=== PATIENT | male | born 1955 | race African-American/Black ===

== ENCOUNTER 2017-04-10 17:20 | Emergency (ER) | payer MEDICAID ==
[~2017-04-10] VITALS: Ht 188 cm; Wt 114.8 kg
[2017-04-10 18:16] LABS: Basophils # (auto) 0.1 uL; Basophils % (auto) 2.4 % (0.0-2.0); Eosinophils # (auto) 0.1 uL; Eosinophils % (auto) 0.9 % (0.0-7.0); Hematocrit 42.3 % (41.0-53.0); Hemoglobin 14.1 g/dL (13.5-17.5); Lymphocytes # (auto) 2.2 uL; Lymphocytes % (auto) 37.5 % (10.0-50.0); Mean Corpuscular Hemoglobin 27.1 pg (28.0-32.0); Mean Corpuscular Hgb Conc. 33.4 g/dL (32.0-36.0); Mean Corpuscular Volume 81.1 fL (80.0-100.0); Mean Platelet Volume 9.4 fL (7.4-10.4); Monocytes # (auto) 0.7 uL; Neutrophils # (auto) 2.8 uL; Neutrophils % (auto) 47.2 % (37.0-80.0); Platelet Count (auto) 208 10^3/uL (140-450); Red Cell Distribution Width 14.7 % (11.6-16.0)
[2017-04-10 18:31] LABS: Albumin 3.4 g/dL (3.4-5.0); BUN/Creatinine Ratio 11.4; Calcium 8.8 mg/dL (8.5-10.1); Magnesium 2.4 mg/dL (1.6-2.6); Potassium 3.2 mmol/L (3.5-5.1)
[2017-04-10 18:41] LABS: Total Protein 7.8 g/dL (6.4-8.2)
[2017-04-11] MEDS ORDERED: POTASSIUM CHL 20 Meq TABLET PO ONE (03:45)
[2017-04-11 04:01] VITALS: BP 128/84
== END 2017-04-11 04:03 | disposition home or self-care (01) ==
LOC: ER 17:29
DX: E87.6 Hypokalemia (principal); K21.9 Gastro-esophageal reflux disease without esophagitis; K82.8 Other specified diseases of gallbladder; I12.9 Hypertensive chronic kidney disease with stage 1 through stage 4 chronic kidney disease, or unspecified chronic kidney disease; E11.22 Type 2 diabetes mellitus with diabetic chronic kidney disease; N18.9 Chronic kidney disease, unspecified; F12.10 Cannabis abuse, uncomplicated
CPT/HCPCS: 36415; 76705; 80053; 83690; 83735; 85025

== ENCOUNTER 2017-04-16 23:35 | Emergency (ER) | payer MEDICAID ==
[~2017-04-16] VITALS: Ht 188 cm; Wt 110.7 kg
[2017-04-17 00:15] VITALS: BP 113/75
== END 2017-04-17 02:44 | disposition left against medical advice (07) ==
LOC: ER 23:35
DX: R04.0 Epistaxis (principal); Z53.21 Procedure and treatment not carried out due to patient leaving prior to being seen by health care provider

== ENCOUNTER 2017-05-07 22:00 | Emergency (ER) | payer MEDICAID ==
[~2017-05-07] VITALS: Ht 190.5 cm; Wt 108.9 kg
[2017-05-08] MEDS ORDERED: HYDROcodone-ACET 10/325MG TAB PO ONE (03:45)
[2017-05-08 05:15] VITALS: BP 128/80
== END 2017-05-08 05:43 | disposition home or self-care (01) ==
LOC: EDBD 22:00 → ER 22:19
DX: S16.1XXA Strain of muscle, fascia and tendon at neck level, initial encounter (principal); S96.912A Strain of unspecified muscle and tendon at ankle and foot level, left foot, initial encounter; S00.93XA Contusion of unspecified part of head, initial encounter; S80.02XA Contusion of left knee, initial encounter; E11.22 Type 2 diabetes mellitus with diabetic chronic kidney disease; I12.9 Hypertensive chronic kidney disease with stage 1 through stage 4 chronic kidney disease, or unspecified chronic kidney disease; N18.9 Chronic kidney disease, unspecified; F12.10 Cannabis abuse, uncomplicated; Y08.89XA Assault by other specified means, initial encounter; Y93.89 Activity, other specified; Y99.8 Other external cause status; Y92.89 Other specified places as the place of occurrence of the external cause
CPT/HCPCS: 70450; 70486; 72125; 73070; 73130; 73560

== ENCOUNTER 2024-08-19 13:36 | Emergency (ER) | payer OTHER, MEDICAID ==
[~2024-08-19] VITALS: Ht 188 cm; Wt 100.9 kg
[2024-08-19] MEDS: HYDROcodone-ACET 10/325MG TAB PO ONE (15:36)
[2024-08-19] MEDS: cefTRIAXone SOD 1,000 MG VL IM ONE (15:37)
[2024-08-19 16:00] VITALS: BP 124/85; PULSE 67; RESP 18; TEMP 98.6; O2SAT 98
[2024-08-19] MEDS ORDERED: CLIN1CAP70 PO (16:01)
[2024-08-19] MEDS ORDERED: IBUP-1456 PO (16:01)
[2024-08-19] MEDS ORDERED: TRAM-626 PO (16:11)
== END 2024-08-19 16:14 | disposition home or self-care (01) ==
LOC: ER 13:36
DX: K04.7 Periapical abscess without sinus (principal); I12.9 Hypertensive chronic kidney disease with stage 1 through stage 4 chronic kidney disease, or unspecified chronic kidney disease; E11.22 Type 2 diabetes mellitus with diabetic chronic kidney disease; N18.9 Chronic kidney disease, unspecified; F15.90 Other stimulant use, unspecified, uncomplicated; Z79.899 Other long term (current) drug therapy; Z79.1 Long term (current) use of non-steroidal anti-inflammatories (NSAID)
CPT/HCPCS: 96372; 99283; J0696

== ENCOUNTER → 2024-12-05 | Outpatient (CLI) | payer OTHER, MEDICAID ==
[~2024-12-05] VITALS: Ht 188 cm; Wt 104.3 kg
[~2024-12-05] MED LIST: CLIN1CAP70 PO; TRAM-626 PO
[2024-12-05] MEDS: REGADENOSON 0.4 MG/5 ML SYRG IV ONE ×2 (12:54)
--- NOTE | 2024-12-05 14:23 | DVHSR ---
APPROVED REPORT Exam: Nuclear Stress Test BMI: 0 Stress Test Details HR Max Heart Rate (APMHR): 152 bpm Target HR (85% APMHR): 129 bpm BP ECG Stress ECG Conclusion Review of the myocardial perfusion images during stress demonstrated a moderate size area of mild int ensity reduced radiotracer uptake in the base of the inferior wall. This appears to be more intense during the resting images. Otherwise, there is homogeneous radiotracer uptake throughout the rest of the left ventricular myocardium. Left ventricular volumes are increased. Ejection fraction is mild ly decreased and is estimated at 45%. No gated images are available to assess for wall motion. Impression: 1. Fixed defect in the inferior wall which could be secondary to attenuation artifact versus prior in farction. 2. No evidence of ischemia. 3. Mildly decreased left ventricular systolic function with ejection fraction 45%. NM EXAM: Myocardial Perfusion REST/STRESS Imaging Protocol: Rest Tc-99m/Stress Tc-99m 1 day Resting Data Rest SPECT myocardial perfusion imaging was performed in supine position 60 minutes following the int ravenous injection of 11.5 mCi of Tc-99m Sestamibi. Time of rest injection: 1127 Time of rest imagin Administration Route: IV Administration Site: Left Hand Pharmacologic Stress Pharmacologic stress test was performed by injecting Regadenoson 0.4 mg IV push followed by the intra venous injection of 32 mCi of Tc-99m Sestamibi. Time of stress injection: 1255 Time of stress imagin Administration Route: IV Administration Site: Left Hand Gated Stress SPECT was performed 60 minutes after stress injection. The images were gated to evaluate regional wall motion and calculate left ventricular ejection fracti on. Stress only was performed in the Supine position. Nuclear Conclusion ECG Findings: equivocal Clinical Findings: negative for ischemia Nuclear Findings: negative for ischemia Exercise Capacity: not assessed Left Ventricular Function: abnormal Risk Study: moderate Review of the myocardial perfusion images during stress demonstrated a moderate size area of mild int ensity reduced radiotracer uptake in the base of the inferior wall. This appears to be more intense during the resting images. Otherwise, there is homogeneous radiotracer uptake throughout the rest of the left ventricular myocardium. Left ventricular volumes are increased. Ejection fraction is mild ly decreased and is estimated at 45%. No gated images are available to assess for wall motion. Impression: 1. Fixed defect in the inferior wall which could be secondary to attenuation artifact versus prior in farction. 2. No evidence of ischemia. 3. Mildly decreased left ventricular systolic function with ejection fraction 45%.
== END | disposition home or self-care (01) ==
LOC: XYW 10:47
PROVIDERS: ATTEND Internal Medicine
DX: Z01.810 Encounter for preprocedural cardiovascular examination (principal); I48.91 Unspecified atrial fibrillation; I11.0 Hypertensive heart disease with heart failure; I50.22 Chronic systolic (congestive) heart failure; M54.50 Low back pain, unspecified; E11.65 Type 2 diabetes mellitus with hyperglycemia; E78.5 Hyperlipidemia, unspecified; G89.29 Other chronic pain
CPT/HCPCS: 78452; 93017; A9500; J2785

== ENCOUNTER 2025-03-29 05:23 | Emergency (ER) | payer OTHER, MEDICAID ==
[~2025-03-29] VITALS: Ht 188 cm; Wt 108.5 kg
[2025-03-29 07:23] VITALS: BP 148/90; PULSE 65; RESP 13; TEMP 97.7; O2SAT 100
--- NOTE | 2025-03-29 07:29 | DVH ---
EXAM: XR Left Foot Complete, 3 or More Views CLINICAL INDICATION: r/o fracture TECHNIQUE: Frontal, lateral and oblique views of the left foot. COMPARISON: None FINDINGS: BONES/JOINTS: See below. SOFT TISSUES: Soft tissue swelling without acute fracture. No radiopaque foreign body. OTHER FINDINGS: . IMPRESSION: 1. Soft tissue swelling without acute fracture. 2. If symptoms persist, further evaluation with CT is recommended.
[2025-03-29] MEDS: KETOROLAC TROMETH 30 MG/ML 1ML VIAL IM ONE (07:54)
[2025-03-29] MEDS ORDERED: IBUP-1455 PO (07:59)
--- NOTE | 2025-03-29 08:00 | ED.PDOC ---
Musculoskeletal HPI Comments This is a pleasant 69-year-old male with a history of diabetes, hypertension, and gout who presents with a chief complaint of atraumatic left foot pain. Symptoms started four days ago. Possible cause: Patient remembers sitting on his foot for a prolonged period of time. Pain has been persistent since. Worsens with flexion-extension of the foot is able to get adequate relief with epud-rjl-euakxwn ibuprofen. Able to ambulate without assistive devices Chief Complaint: Lower Extremity Time Seen by MD: 06:30 Primary Care Provider: UNKNOWN Reviewed Notes: Nurses Notes, Medications, Allergies Allergies: Coded Allergies: NO KNOWN ALLERGIES (Unverified , 11/02/16) Home Meds Active Scripts Tramadol HCl (Tramadol HCl) 50 Mg Tab, 50 MG PO TID, #20 TAB Prov:PUSHPA FARNSWORTH 08/19/24 Clindamycin Hcl (Clindamycin Hcl) 300 Mg Cap, 300 MG PO QID, #40 CAP Prov:PUSHPA FARNSWORTH 08/19/24 Information Source: Patient Mode of Arrival: Ambulatory Past Medical History PAST MEDICAL HISTORY: CKF, DM, HTN Surgical History: Denies all surgeries Family History Family History: Unobtainable Social History Smoker: Non-Smoker Alcohol: Denies ETOH Use Drugs: Marijuana Lives In: Home All Other Systems: Reviewed and Negative (Per HPI) Physical Exam General Appearance: No Apparent Distress, Normal HEENT: Normal ENT Inspection, Pharynx Normal, TMs Normal Neck: Full Range of Motion, Non-Tender, Normal, Normal Inspection Respiratory: Chest Non-Tender, Lungs Clear, No Accessory Muscle Use, No Respiratory Distress, Normal Breath Sounds Cardiovascular: No Edema, No JVD, No Murmur, No Gallop, Normal Peripheral Pulses, Regular Rate/Rhythm Breast Exam: Deferred Gastrointestinal: No Organomegaly, Non Tender, No Pulsatile Mass, Normal Bowel Sounds, Soft Genitalia: Deferred Pelvic: Deferred Rectal: Deferred Extremities: No calf tenderness, Normal capillary refill, Normal inspection, Normal range of motion, Non-tender, No pedal edema Musculoskeletal : Apperance: Normal Neurologic: Alert, speech and hearing clinic director II-XII nml as Tested, No Motor Deficits, Normal Affect, Normal Mood, No Sensory Deficits Cerebellar Function: Normal Reflexes: Normal Skin: Dry, Normal Color, Warm Lymphatic: No Adenopathy Was a procedure done? Was a procedure done?: No Images 1 - Localized TTP. Dorsiflexion plantar flexion intact. Dorsalis pedis pulses 2+. Cap refill less than 2 seconds. Neurovascular sensation intact Differential Diagnosis EXT Differential Diagnosis: Sprain X-Ray, Labs, Meds, VS Vital Signs Date Time Temp Pulse Resp B/P (MAP) Pulse Ox O2 Delivery O2 Flow Rate FiO2 03/29/25 07:23 97.7 65 13 148/90 (109) 100 97.7 03/29/25 07:23 65 13 100 Room Air 03/29/25 05:30 97.7 65 13 148/90 (109) 100 97.7 X-Ray, Labs, Meds, VS Comment Findings: No fracture or dislocation My wet read reveals no apparent acute bony abnormality, no FB, minimal to no soft tissue swelling and appropriate alignment. Presentation most consistent with foot tendonitis Patient does not currently demonstrate complications of sprain such as compartment syndrome, arterial or nerve injury. Differentials considered but not limited to: sprain, fracture, achilles tendon rupture The joint itself is non-irritable with ROM and there is no overlying redness and warmth to suggest injection. The Achilles and dorsiflexion tendon are non-tender and extension is intact. Disposition: Discharge. Supportive bracing provided. RICE. Strict return precautions and instructions to follow up with primary MD within 24-48 hours for further evaluation. May benefit from additional imaging such as stress views or MRI. Time of 1ST Reevaluation: 07:56 Reevaluation 1ST: Improved Patient Education/Counseling: Diagnosis, Treatment Family Education/Counseling: Diagnosis, Treatment Departure 1 Departure Time of Disposition: 07:58 Impression: Primary Impression: Foot tendinitis Disposition: 01 HOME / SELF CARE / HOMELESS Condition: Stable e-Prescriptions Ibuprofen Micronized (Ibuprofen) 800 Mg Tab 800 MG PO TIDWM for 10 Days, #30 TAB 0 Refills Prov: FREDERICK HUBBARD NP 03/29/25 Critical Care Note Critical Care Time?: No Stability Stability form required: No Heart Score Heart Score: Heart Score Response (Comments) Value History N/A 0 EKG N/A 0 Age N/A 0 Risk Factors N/A 0 Troponin N/A 0 Total 0 FREDERICK HUBBARD NP March 29, 2025 08:00
== END 2025-03-29 08:00 | disposition home or self-care (01) ==
LOC: ER 05:23
DX: M77.52 Other enthesopathy of left foot and ankle (principal); I12.9 Hypertensive chronic kidney disease with stage 1 through stage 4 chronic kidney disease, or unspecified chronic kidney disease; E11.22 Type 2 diabetes mellitus with diabetic chronic kidney disease; N18.9 Chronic kidney disease, unspecified
CPT/HCPCS: 73630; 96372; 99283; J1885

== ENCOUNTER 2025-07-18 08:13 | Outpatient (CLI) | payer OTHER, MEDICAID ==
[~2025-07-18 08:13] MED LIST changes: +IBUP-1455 PO
== END 2025-07-18 17:00 | disposition home or self-care (01) ==
LOC: Rad HDHVI 08:13
PROVIDERS: ATTEND Internal Medicine Cardiovascular Disease
DX: Z01.810 Encounter for preprocedural cardiovascular examination (principal); I08.0 Rheumatic disorders of both mitral and aortic valves
CPT/HCPCS: 93306

== ENCOUNTER 2025-08-01 07:56 | Outpatient (CLI) | payer OTHER, MEDICAID ==
[~2025-08-01] VITALS: Ht 188 cm; Wt 107.5 kg
[2025-08-01] MEDS ORDERED: ADENOSINE 90 MG in GIVE UN-DILUTED 0 ML IV ONE (08:30)
[2025-08-01] MEDS ORDERED: ADENOSINE 90 MG/30 ML INJ IV ONE (08:34)
== END 2025-08-01 17:00 | disposition home or self-care (01) ==
LOC: Rad HDHVI 07:56
PROVIDERS: ATTEND Internal Medicine Cardiovascular Disease
DX: Z01.810 Encounter for preprocedural cardiovascular examination (principal); I10 Essential (primary) hypertension; I49.3 Ventricular premature depolarization; I48.91 Unspecified atrial fibrillation; I48.3 Typical atrial flutter; E11.65 Type 2 diabetes mellitus with hyperglycemia; E78.5 Hyperlipidemia, unspecified; R94.31 Abnormal electrocardiogram [ECG] [EKG]
CPT/HCPCS: 78452; 93017; A9500; J0153

== ENCOUNTER 2025-08-16 09:55 | Outpatient (CLI) | payer OTHER, MEDICAID ==
[2025-08-16 10:06] VITALS: BP 133/88; PULSE 64; RESP 16; O2SAT 94
[2025-08-16] MEDS ORDERED: APIX5TAB PO (11:46)
[2025-08-16] MEDS ORDERED: HYDR25TA4 PO (11:46)
[2025-08-16] MEDS ORDERED: ALLO300T2 PO (11:46)
[2025-08-16] MEDS ORDERED: LISI10TA34 PO (11:46)
[2025-08-16] MEDS ORDERED: SITA50TA PO (11:46)
== END 2025-08-16 17:00 | disposition home or self-care (01) ==
LOC: CHF HDHVI 09:55
PROVIDERS: ATTEND Internal Medicine Cardiovascular Disease
DX: I48.91 Unspecified atrial fibrillation (principal); I50.1 Left ventricular failure, unspecified
CPT/HCPCS: G0463

== ENCOUNTER 2025-08-18 07:33 | Day surgery (SDC) | payer OTHER, MEDICAID ==
[2025-08-16 12:40] LABS: INR 1.07 (0.9-1.15); Partial Thromboplastin Time 31.6 SEC (24.5-34.5); Prothrombin Time 11.3 sec (9.3-11.8)
[2025-08-16 12:43] LABS: Alanine Aminotransferase 22 U/L (7-40); Albumin 4.3 g/dL (3.2-4.8); Alkaline Phosphatase 94 U/L (46-116); Anion Gap 9 (5-15); BUN/Creatinine Ratio 13.8 (10.0-20.0); Bilirubin, Total 0.6 mg/dL (0.2-1.0); Blood Urea Nitrogen 17 mg/dL (9-23); Calcium 9.7 mg/dL (8.7-10.4); Carbon Dioxide 29 mmol/L (20-31); Chloride 106 mmol/L (98-107); Glucose 89 mg/dL (74-106); Potassium 4.2 mmol/L (3.5-5.1); Sodium 144 mmol/L (136-145); Total Protein 7.8 g/dL (5.7-8.2)
[2025-08-16 12:48] LABS: Hematocrit 46.7 % (41.0-53.0); Hemoglobin 15.3 g/dL (13.5-17.5); Mean Corpuscular Hemoglobin 28.1 pg (28.0-32.0); Mean Corpuscular Volume 86.0 fL (80.0-100.0); Nucleated Red Blood Cells % 0.1 %
[2025-08-18] VITALS (7 sets, daily range): BP systolic 120–147; BP diastolic 71–96; PULSE 60–64; RESP 14–23; O2SAT 90–97
[~2025-08-18] VITALS: Ht 188 cm; Wt 108.9 kg
[~2025-08-18 07:33] MED LIST changes: +ALLO300T2 PO; +APIX5TAB PO; -CLIN1CAP70 PO; +HYDR25TA4 PO; -IBUP-1455 PO; +LISI10TA34 PO; +SITA50TA PO; -TRAM-626 PO
[2025-08-18] MEDS ORDERED: IOHEXOL 350 MG/ML 100ML IJ ONE (07:49)
[2025-08-18] MEDS ORDERED: fentaNYL CITRATE 100 MCG/2 ML VL ONE (08:15)
[2025-08-18] MEDS ORDERED: MIDAZOLAM HCL 2MG/2ML 2ml VIAL (1mg/ml) ONE (08:15)
[2025-08-18] MEDS ORDERED: LIDOCAINE 2%HCL (LOCAL ANESTH.) INJ 20ML MDV ONE ×2 (08:15→09:21)
[2025-08-18] MEDS ORDERED: ANGIOMAX 250 MG VIAL IV ONE (08:16)
[2025-08-18] MEDS ORDERED: SODIUM CHL 0.9% 0 ML ONE (08:16)
[2025-08-18] MEDS ORDERED: VANCOMYCIN HCL 1000 MG VL ONE (09:11)
[2025-08-18] MEDS ORDERED: ceFAZolin 1GM/50ML 50 ML IV ONE (09:17)
[2025-08-18] MEDS ORDERED: HYDROmorphone HCL 2 MG/ML VL/or syr ONE (09:31)
--- NOTE | 2025-08-18 10:56 | DVH ---
CHEST RADIOGRAPH Indication: S/P PACEMAKER Technique: Single frontal view of the chest was obtained Comparison: None FINDINGS: Lines and Tubes: Dual-chamber pacemaker is in place with pulse generator over the left chest. Lungs: No focal consolidation. Pleura: No effusion. No pneumothorax. Cardiomediastinal contours: Unremarkable Bones: No acute osseous abnormality. IMPRESSION: 1. No acute cardiopulmonary disease. 2. Dual-chamber pacemaker in place. 3. No prior studies for comparison HS:Y
--- NOTE | 2025-08-18 14:28 | DVHHP ---
ADMIT DATE: 08/18/2025 HISTORY OF PRESENT ILLNESS: The patient who is 70 years old with history of hypertension and hyperlipidemia. History of diminished left ventricular ejection fraction, EF around 50% by echocardiography. The patient now has chronic atrial fibrillation with pauses greater than 4 seconds by Tele monitor. The patient is now to undergo left heart catheterization to rule out coronary artery disease. Then if there is no significant coronary artery disease, we will proceed to dual-chamber permanent pacemaker. He has intermittent atrial fibrillation, I think he is a candidate for AFib ablation, but he has severe bradycardia with pauses greater than 4 seconds and I believe pacemaker is indicated in this patient prior to any kind of medical management, cardioversion, or even antiarrhythmic therapy. FAMILY HISTORY: Negative. SOCIAL HISTORY: At this time, no drug use, no alcohol use. Even though remote history of drug use has been reported. REVIEW OF SYSTEMS: He denies any fever, chills, melena, hematochezia, hematemesis or hemoptysis. No history of rheumatologic disorder, mixed connective tissue disease. No history of irritable bowel syndrome. No history of any infiltrative processes such as amyloid. PHYSICAL EXAMINATION: VITAL SIGNS: Blood pressure is 122/84, pulse of 70, O2 saturation 92% on room air. HEENT: Pupils are reactive. Funduscopic exam shows no AV nicking, no exudates, no papilledema. Sclerae anicteric. Extraocular muscles are intact. NECK: Thyroid is within normal limits. No JVD appreciated. Carotid pulses are 2+ and symmetrical. Normal upstroke and contour. No cervical adenopathy. No supraclavicular adenopathy. PULMONARY: Clear to auscultation. CARDIOVASCULAR: Irregularly irregular. PMI is not displaced. ABDOMEN: Soft, nontender. Normal bowel sounds. SKIN: Unremarkable. EXTREMITIES: No edema noted. ASSESSMENT AND PLAN: Thus, the patient with atrial fibrillation, diminished left ventricular ejection fraction, sick sinus syndrome. The patient is now to undergo left heart catheterization. If there is no significant coronary artery disease, then we will proceed with permanent pacemaker implantation. Sterling Winters MD SA/EKT TID: [id number] RECEIPT: [id number]
--- NOTE | 2025-08-18 14:46 | DVHDS ---
DATE OF DISCHARGE: 08/18/2025 DISCHARGE DIAGNOSES: * The patient with status post left heart catheterization. No significant epicardial disease. Ostial circumflex has a 40% narrowing by FFR. * The patient underwent dual chamber permanent pacemaker implantation because of sick sinus syndrome. It is a Biotronic MRI compatible dual chamber permanent pacemaker. HOSPITAL COURSE: The patient is clinically stable and will be discharged home. Chest x-ray obtained did not show any pneumothoraces. Post permanent pacemaker, chest x-ray did not show any acute changes as well. EKG shows paced rhythm. Thus, the patient with atrial fibrillation with marked bradycardia with pauses, underwent successful dual chamber permanent pacemaker. MRI compatible Biotronic System. Sterling Winters MD SA/CRISSY TID: [id number] RECEIPT: [id number]
--- NOTE | 2025-08-18 15:02 | DVHOP ---
DATE OF SURGERY: 08/18/2025 PROCEDURES TO BE PERFORMED: * Selective left and right coronary angiography. * Ventriculogram. * Right iliac angiography. INDICATION: The patient with chest pain, diminished left ventricular ejection-fraction, now to undergo the above-mentioned procedure. PROCEDURE: The patient was prepped and draped in a sterile condition. Xylocaine 1% was used to anesthetize the right groin. Using a Cook needle, right femoral artery was engaged with Seldinger technique, a 6-Bangladeshi sheath in the right femoral artery. Using a 6-Bangladeshi JL4.5 diagnostic catheter and a 6-Bangladeshi JR4 diagnostic catheter, selective left and right coronary angiography was performed. Using a 6-Bangladeshi pigtail catheter, a ventriculogram was done. There were no complications. The patient tolerated the procedure well. The right femoral arteriotomy site was closed using the Angio-Seal device. RESULTS: * Left main is calcified, no flow restrictive lesion. * Left anterior descending artery has mild diffuse disease without any flow restrictive lesion. * Circumflex at ostium of 40% narrowing and FFR of 0.89 proximally and 0.86 distally. However, it is not hemodynamically significant. * Right coronary artery mild intimal irregularity without any flow restrictive lesion. * Left ventricular function shows EF around 50% with an LVEDP of 5 mmHg, with no gradient across the aortic valve. CONCLUSION: Thus, the patient with mild coronary artery disease, especially in the circumflex territory ostially, otherwise, unremarkable. The patient's EF is slightly diminished, but at this time, the patient should proceed with a permanent pacemaker since the patient has long pauses. He has chronic AFib that has been well documented, but he still may be a candidate for cardioversion. Since he is a new patient ____, the length of his AFib has not been well established. He may also require AFib ablation, that is also a possibility. We will continue to follow the patient. Sterling Winters MD SA/ANDREW/TY TID: [id number] RECEIPT: [id number]
--- NOTE | 2025-08-18 15:06 | DVHOP ---
DATE OF SURGERY: 08/18/2025 PROCEDURE TO BE PERFORMED: * Dual chamber permanent pacemaker. * Venography. * Conscious sedation. * Thrombin injection into the pocket site. DESCRIPTION OF PROCEDURE: The patient was prepped and draped under sterile condition. A 1% Xylocaine was used to anesthetize the left supraclavicular region. Using a Cook needle, the left subclavian vein was engaged with Seldinger technique. A guidewire was then appropriately positioned. The patient's anatomy of the subclavian was difficult. We had to do a venography and more distal subclavian approach was needed for cannulating the subclavian vein. Then, using a 10-blade, linear incision was made. Using blunt dissection, electrocautery pocket was then dissected out. Using a 9-Panamanian peel-away sheath, the right ventricular active fixation lead was then appropriately positioned in the right ventricular mid septum. Threshold parameters were obtained. Lead was secured to the chest wall using 0 Ethibond. Similarly, using a 7-Panamanian peel-away sheath, right atrial active fixation lead was appropriately positioned. Threshold parameters were obtained. Lead was secured to the chest wall using 0 Ethibond. Generator was implanted. The pocket was closed using 3-0 Monoderm subcutaneous sutures followed by 3-0 Monoderm subcuticular sutures. There were no complications. The patient tolerated the procedure well. RESULTS: The patient has Biotronik MRI compatible dual-chamber permanent pacemaker Amvia Edge DR-T, model number [id number], serial number [id number]. Right ventricular lead is Solia S53, model number 668421, serial number [id number]. Atrial lead is Solia S45, model number [id number], serial number [id number]. Threshold parameters atrium: P wave amplitude of 1.8 millivolts, the patient is in A-fib, impedance of 565 ohms. Right ventricular lead R-wave amplitude of 12.0 millivolts, threshold of 0.5 volts at 0.4 milliseconds pulse duration, pacing impedance of 725 ohms. CONCLUSION: The patient has successful implantation of Biotronik MRI compatible dual chamber permanent pacemaker. Sterling Winters MD SA/MATTHEW TID: [id number] RECEIPT: [id number]
--- NOTE | 2025-08-19 10:39 | ECG ---
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
--- NOTE | 2025-08-23 11:09 | ECG ---
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 : 1955 Requested By: ELDON SONG Order Number: [id number] Reading MD: Aniket Brasher Measurements Intervals [place] Rate: 63 P: 107 VT: 0 QRS: 96 QRSD: 164 T: -81 QT: 500 QTc: 511 Interpretive Statements Suspect arm lead reversal, interpretation assumes no reversal Demand pacemaker, interpretation is based on intrinsic rhythm Atrial flutter with variable AV block with premature ventricular or aberrantly conducted complexes Rightward axis Nonspecific intraventricular block Electronically Signed On 08-26-2025 19:33:05 PDT by Aniket Brasher Please click the below link to view image of tracing.
== END 2025-08-18 13:37 | disposition home or self-care (01) ==
LOC: CATH 07:33
PROVIDERS: ATTEND Internal Medicine Cardiovascular Disease
DX: I48.20 Chronic atrial fibrillation, unspecified (principal); I25.10 Atherosclerotic heart disease of native coronary artery without angina pectoris; I45.4 Nonspecific intraventricular block; I48.0 Paroxysmal atrial fibrillation; I49.5 Sick sinus syndrome; I10 Essential (primary) hypertension; E78.5 Hyperlipidemia, unspecified; I44.30 Unspecified atrioventricular block; I48.92 Unspecified atrial flutter; Z95.0 Presence of cardiac pacemaker
CPT/HCPCS: 33208; 36415; 71045; 80053; 85025; 85610; 85730; 93005; 93458; C1760; C1769; C1785; C1894; J0690; J1171; J1644; J2250; J3010; J3373; Q9967; 99152

== ENCOUNTER 2025-10-31 08:01 | Outpatient (CLI) | payer OTHER, MEDICAID | END 2025-10-31 17:00 | disposition home or self-care (01) | LOC: Rad HDHVI 08:01 | PROVIDERS: ATTEND Internal Medicine Cardiovascular Disease | DX: I34.0 Nonrheumatic mitral (valve) insufficiency (principal); I11.9 Hypertensive heart disease without heart failure; I77.819 Aortic ectasia, unspecified site; E78.5 Hyperlipidemia, unspecified | CPT/HCPCS: 93306 ==